=== PATIENT | male | born 1990 | race Caucasian/White ===

== ENCOUNTER 2021-07-29 13:31 | Emergency (ER) | payer BC, SELFPAY ==
--- NOTE | ~2021-07-29 | CT_ITS ---
EXAMINATION: CT soft tissue neck w con DATE: 07/29/2021 17:09 INDICATION: Sore throat, sensation of crepitus. TECHNIQUE: Computed tomography (CT) of the neck was performed with 75 mL Omnipaque-300 intravenous co ntrast. Automated exposure control and iterative reconstruction technique were employed. The dose-byron gth product was 607.74 mGy-cm. COMPARISON: None FINDINGS: The thyroid gland is unremarkable. The submandibular and parotid glands are symmetric. There is n o cervical lymphadenopathy. There are no masses identified. The superior mediastinum is unremarka ble. The airway is unremarkable. Parapharyngeal and pre-glottic fat planes are preserved. Candida l arch, great vessels and neck vessels. The orbits are unremarkable. Mild mucosal thickening in th e ethmoid air cells, retention cyst or polyp in the left medullary sinus, aerated spaces are otherwis e clear. Clear lungs. Normal regional bones. IMPRESSION: 1. Normal CT soft tissue neck findings. Reviewed, dictated and finalized at location K.
[2021-07-29 13:37] VITALS: BP 137/79; PULSE 82; RESP 18; TEMP 36.5; O2SAT 100
--- NOTE | 2021-07-29 15:55 | ED.GENADULT ---
HPI - General Adult General Chief complaint: Unspecified Stated complaint: ST Time Seen by Provider: 07/29/21 14:55 Source: patient History of Present Illness HPI narrative: Reports sore throat for the past couple days today he felt like something was cracking in his chest. He also felt like something popped in his throat and he felt liquid come out that was salty. Ports his symptoms initially were very mild and he was not too concerned however given today's events is concerned about something more serious going on so he came to the ER for evaluation. Reports pain with swallowing his pain is achy, constant and worse with swallowing, no radiation. Denies any fevers. Does report a chronic cough this time ER is not appreciated any new or worsening cough. Denies any nausea vomiting or diarrhea Related Data Allergies Allergy/AdvReac Type Severity Reaction Status Date / Time amoxicillin Allergy Unknown Nausea and Verified 07/29/21 13:40 Vomiting Review of Systems Review of Systems: CONSTITUTIONAL: Denies fever, chills, or sweats. EYES: Denies visual changes, redness, or discharge. ENT: Denies rhinorrhea, or otalgia. CARDIOVASCULAR: Denies chest pain, palpitations, or edema. RESPIRATORY: Denies cough or dyspnea. GASTROINTESTINAL: Denies abdominal pain, nausea, vomiting, or diarrhea. GENITOURINARY: Denies dysuria or hematuria. SKIN: Denies rash or itching. MUSCULOSKELETAL: Denies back pain, joint pain, or myalgia. NEUROLOGIC: Denies headache, numbness, dizziness, or weakness. PSYCHIATRIC: Denies anxiety or depression. All systems reviewed & are unremarkable except as noted in HPI and below Exam Narrative: GENERAL: Well-appearing, well-nourished, and in no acute distress. HEAD: Normocephalic, atraumatic. EYES: PERRLA and EOMI. ENT: Nares clear, no rhinorrhea or epistaxis. Mucous membranes moist. Erythema in the posterior pharynx no exudates no uvula deviation NECK: Supple. No masses. No JVD CHEST: Clear to auscultation. No respiratory distress. No wheezes rales or rhonchi HEART: Regular rate and rhythm. No murmur heard. Normal peripheral pulses. EXTREMITIES: Normal range of motion. No edema. SKIN: Warm, dry, no rash. NEURO: No focal deficits. Alert and oriented x3. PSYCH: Normal mood and affect. Course Reevaluation(s) Reevaluation #1: Patient resting comfortable results and plan reviewed with patient. Patient is comfortable outpatient plan. Date: 07/29/21 Time: 18:01 Vital Signs Vital signs: Vital Signs Temperature 36.5 C 07/29/21 13:37 Pulse Rate 82 07/29/21 13:37 Respiratory Rate 18 07/29/21 13:37 Blood Pressure 137/79 07/29/21 13:37 Pulse Oximetry 100 07/29/21 13:37 Oxygen Delivery Room Air 07/29/21 13:37 Temperature 36.5 C 07/29/21 13:37 Pulse Rate 82 07/29/21 13:37 Respiratory Rate 18 07/29/21 13:37 Blood Pressure 137/79 07/29/21 13:37 Pulse Oximetry 100 07/29/21 13:37 Oxygen Delivery Room Air 07/29/21 13:37 Medical Decision Making MDM Narrative Medical decision making narrative: H&P as above, vss, pt looks clinically well, exam with erythema in the posterior pharynx, labs unremarkable, img without acute process, additional labs/img considered, symptomatic relief available as needed, on reevaluation pt continues to looks clinically well. Suspect viral pharyngitis, dns free air, esophageal injury, perforation, abscess. plan to tx/monitor as op w/ pcm f/u findings/plan discussed with pt, pt agree/comfortable with plan, return precautions given Vital Signs Vital Signs: Vital Signs Temperature 36.5 C 07/29/21 13:37 Pulse Rate 82 07/29/21 13:37 Respiratory Rate 18 07/29/21 13:37 Blood Pressure 137/79 07/29/21 13:37 Pulse Oximetry 100 07/29/21 13:37 Oxygen Delivery Room Air 07/29/21 13:37 Temperature 36.5 C 07/29/21 13:37 Pulse Rate 82 07/29/21 13:37 Respiratory Rate 18 07/29/21 13:37 Blood Pressure 137/79 07/29/21 13:37 Pu
[2021-07-29 16:54] LABS: Alanine Aminotransferase 39 U/L (6-50); Alkaline Phosphatase 87 U/L (38-126); Anion Gap 5 mmol/L (8-16); Aspartate Amino Transferase 37 U/L (17-59); Bilirubin,Total 0.6 mg/dL (0.2-1.3); Blood Urea Nitrogen 10 mg/dL (9-20); Calcium 9.1 mg/dL (8.4-10.2); Carbon Dioxide 31 mmol/L (22-30); Chloride 101 mmol/L (98-107); Estimated CRCL calculation 113 ml/min; Estimated Glomerular Filt Rate > 60; Glucose 109 mg/dL (65-110); Potassium 3.9 mmol/L (3.4-5.0); Sodium 137 mmol/L (137-145)
== END 2021-07-29 18:08 | disposition home or self-care (01) ==
PROVIDERS: Emergency Provider Emergency Medicine; PCP Internal Medicine
DX: J02.9 Acute pharyngitis, unspecified (principal)
CPT/HCPCS: 36415; 70491; 80053; 87081; 87880; 99284; Q9967

== ENCOUNTER 2022-03-04 10:38 | Emergency (ER) | payer BC, SELFPAY ==
--- NOTE | ~2022-03-04 | XR_ITS ---
Clinical Indication: Chest pain PA and lateral views of the chest: Comparison: None Findings: The lungs are clear, aside from probable minimal right basilar scarring or atelectasis. Ca rdiomediastinal silhouette is within normal limits. Bones and soft tissues are unremarkable. Impression: Probable minimal right basilar scarring or atelectasis, otherwise clear lungs. Reviewed, dictated and finalized at location . GAGE LOAN INTERVIEWER Impression: Probable minimal right basilar scarring or atelectasis, otherwise clear lungs.
--- NOTE | ~2022-03-04 | CT_ITS ---
Clinical Indication: Shortness of breath CT Scan of the Chest with Contrast: Technique: Contiguous sections were acquired throughout the chest after intravenous administration of 100 cc of Omnipaque 350. Dose reduction technique was used on this scan by utilizing automated expos ure control and iterative reconstruction technique. The dose-length product (DLP) was 450.31 mGy-cm. Findings: There is no evidence of any significant mediastinal, hilar or axillary lymphadenopathy. There are pul monary emboli within segmental branches in the bilateral lower lobes. Probable additional pulmonary e mboli noted in segmental branches in the right upper lobe.. There is no evidence of aortic dissection or aneurysm. There is no evidence of pleural or pericardial effusion. There is bibasilar groundglass pulmonary opacity, with more focal areas of consolidation at the right lung base. No suspicious pulmonary nodules seen. Images through the upper abdomen reveal no abnormalities. Impression: Segmental level pulmonary emboli in the bilateral lower lobes and right upper lobe. Bibasilar groundglass pulmonary opacity/consolidation could reflect atelectatic change/hypoventilator y change versus possibly developing pulmonary infarcts. Findings reported to Dr. Madrigal at 1:50 PM on 03/04/2022. Reviewed, dictated and finalized at location . ICATIONS WRITER Impression: Segmental level pulmonary emboli in the bilateral lower lobes and right upper l obe. Bibasilar groundglass pulmonary opacity/consolidation could reflect atelectatic change/hypoventilatory change versus possibly developing pulmonary infarcts. Findings reported to Dr. Madrigal at 1:50 PM on 03/04/2022.
[2022-03-04 10:46] VITALS: BP 126/84; PULSE 100; RESP 14; TEMP 36.8; O2SAT 98
--- NOTE | 2022-03-04 11:38 | ECG_ITS ---
Measurements Intervals [place] Rate: 97 P: 39 NE: 163 QRS: 15 QRSD: 106 T: 35 QT: 335 QTc: 426 Interpretive Statements SINUS RHYTHM INCOMPLETE RIGHT BUNDLE BRANCH BLOCK [90+ ms QRS DURATION, TERMINAL R IN V1/V2, 40+ ms S IN I/aVL/V4/V5/V6] NO PREVIOUS ECG AVAILABLE FOR COMPARISON Electronically Signed On 03-04-2022 15:00:50 HEATER HELPER by Bernabe Cook M.D.
[2022-03-04] MEDS: SODIUM CHLORIDE 0.9% IV 1,000 ML 999 ML IV CONT (12:38)
[2022-03-04] MEDS: ACETAMINOPHEN 500 MG TABLET 1000 MG PO (12:39)
[2022-03-04] MEDS: IBUPROFEN 400 MG TABLET 800 MG PO (12:39)
[2022-03-04 12:45] LABS: Basophils Percent Auto 0.2 % (0.2-1.2); Eosinophils Absolute Auto 0.1 K/mm3 (0-0.3); Eosinophils Percent Auto 1.1 % (0-4.4); Hemoglobin 14.4 g/dL (14.0-18.0); Immature Granulocyte Absolute 0.02 K/mm3 (0.00-0.031); Immature Granulocyte Percent A 0.2 % (0-0.5); Lymphocytes Percent Auto 13.3 % (18.3-44.2); Mean Corpuscular HGB Conc 34.3 g/dl (32-36); Mean Corpuscular Hemoglobin 30.3 pg (26-34); Mean Corpuscular Volume 88.2 fl (80-100); Mean Platelet Volume 11.7 fl (7.4-10.4); Monocytes Absolute Auto 0.7 K/mm3 (0.1-0.6); Monocytes Percent Auto 7.8 % (2.6-8.5); Neutrophils Absolute Auto 6.4 K/mm3 (1.3-6.7); Neutrophils Percent Auto 77.4 % (45.5-73.1); Platelet Count Result 278 k/mm3 (150-375); Red Blood Count 4.76 M/mm3 (4.6-6.20); Red Cell Distribution Width 12.3 % (11.5-14.5); White Blood Count 8.3 K/mm3 (4.5-10.0)
[2022-03-04 12:45] LABS: Influenza A QL RT-PCR Negative (Negative); Influenza B QL RT-PCR Negative (Negative); RSV RNA, RT-PCR Negative (Negative); SARS-CoV-2 RNA PCR Positive
--- NOTE | 2022-03-04 12:54 | ED.GENADULT ---
HPI - General Adult General Chief complaint: Upper Respiratory Infection Stated complaint: COVID 02/05 NOW INT SOB Time Seen by Provider: 03/04/22 11:32 History of Present Illness HPI narrative: a 31-year-old male presenting ED with a chief complaint of chest pain and shortness of breath. Patient said that starting Tuesday he started having a sharp pain in the right upper quadrant and in his right shoulder, has 8 out 10 intensity and constant. He has never experienced pain like this before. It is worse with deep breaths. He took some muscle relaxers with some relief. He has also had shortness of breath, hemoptysis. He denies history of blood clots, lower extremity edema, trauma/surgery/malignancy. No history of spontaneous pneumothorax. Patient was diagnosed with COVID in early February. His symptoms have resolved since then. Related Data Allergies Allergy/AdvReac Type Severity Reaction Status Date / Time amoxicillin Allergy Unknown Nausea and Verified 03/04/22 11:22 Vomiting Review of Systems Review of Systems: CONSTITUTIONAL: Denies night sweats. EYES: No eye pain ENT: Denies rhinorrhea CARDIOVASCULAR: Denies palpitations RESPIRATORY: Denies hemoptysis GASTROINTESTINAL: Denies hematemesis GENITOURINARY: Denies hematuria. SKIN: Denies rash MUSCULOSKELETAL: Denies myalgia. NEUROLOGIC: Denies weakness. PSYCHIATRIC: Denies delusions PMFSH Past Medical History Medical History Healthy male adult Social History Social History (Updated 03/04/22 @ 12:58 by Andrew Madrigal MD) Social History: Patient admits occasional alcohol use, denies tobacco or drug use Exam Narrative: APPEARANCE: patient appears uncomfortable Head: atraumatic. EYES: EOMI, NOSE: Atraumatic NECK: Trachea midline RESPIRATORY: 4-5 word dyspnea, clear lung sounds bilaterally CARDIOVASCULAR: RRR, no peripheral edema ABDOMINAL: Non-distended MUSCULOSKELETAl: No obvious deformities NEURO: Alert. Moving 4/4 extremities SKIN:: Warm, dry. Normal color PSYCHIATRIC: Normal affect Course Vital Signs Vital signs: Vital Signs Temperature 98.3 F 03/04/22 10:46 Pulse Rate 100 03/04/22 10:46 Respiratory Rate 14 03/04/22 10:46 Blood Pressure 126/84 03/04/22 10:46 Pulse Oximetry 98 03/04/22 10:46 Oxygen Delivery Room Air 03/04/22 10:46 Temperature 98.3 F 03/04/22 10:46 Pulse Rate 100 03/04/22 10:46 Respiratory Rate 14 03/04/22 10:46 Blood Pressure 126/84 03/04/22 10:46 Pulse Oximetry 98 03/04/22 10:46 Oxygen Delivery Room Air 03/04/22 11:32 Medical Decision Making MDM Narrative Medical decision making narrative: this is a 31-year-old male presenting with shortness of breath, pleuritic chest chest pain, hemoptysis. Differential includes bronchitis, pulmonary embolism, spontaneous pneumothorax, viral syndrome. Lab work, CT PE has been ordered. Chest x-ray EKG obtained. Patient's pain will be treated Motrin Tylenol. He will be given IV fluids. COVID was positive. Patient tested positive in early February CT PE showed: Segmental level pulmonary emboli in the bilateral lower lobes and right upper lobe. Bibasilar groundglass pulmonary opacity/consolidation could reflect atelectatic change/hypoventilatory change versus possibly developing pulmonary infarcts. patient is hemodynamically stable, saturating well on room air and has no elevation in biomarkers. No evidence of right heart strain. Pulmonary Embolism Severity Index (PESI) from [employer] on 03/04/2022 All calculations should be rechecked by clinician prior to use RESULT SUMMARY: 41 points Class I, Very Low Risk: 0-1.6% 30-day mortality in this group. INPUTS: Age ?> 31 years Sex ?> 10 = Male History of cancer ?> 0 = No History of heart failure ?> 0 = No History of chronic lung disease ?> 0 = No Heart rate >=10 ?> 0 = No Systolic BP ?> 0 = No Respiratory
[2022-03-04 12:56] LABS: Alanine Aminotransferase 77 U/L (6-50); Albumin Level 4.6 g/dL (3.5-5.1); Alkaline Phosphatase 96 U/L (38-126); Anion Gap 8 mmol/L (8-16); Aspartate Amino Transferase 43 U/L (17-59); Bilirubin,Total 0.9 mg/dL (0.2-1.3); Blood Urea Nitrogen 8 mg/dL (9-20); Carbon Dioxide 28 mmol/L (22-30); Chloride 105 mmol/L (98-107); Estimated CRCL calculation 119 ml/min; Estimated Glomerular Filt Rate > 60; Glucose 111 mg/dL (65-110); Lipase 31 U/L (23-300); Potassium 4.2 mmol/L (3.4-5.0); Sodium 141 mmol/L (137-145)
[2022-03-04 12:58] LABS: INR 1.1; Prothrombin Time 13.7 Seconds (11.1-14.7)
[2022-03-04] MEDS: oxyCODONE HCL (*CRX) 5 MG TAB IR PO (12:58)
[2022-03-04 12:59] LABS: Partial Thromboplastin Time 30.6 SECONDS (22.3-36.8)
[2022-03-04] MEDS: methocarbamoL 750 MG TABLET 1500 MG PO (12:59)
[2022-03-04 13:07] LABS: NT Pro B Type Natriuretic Pept 27 pg/mL (5-100); Troponin I < 0.012 ng/mL (0.000-0.034)
[2022-03-04 14:11] VITALS: BP 141/79; PULSE 85; RESP 18; O2SAT 98
[2022-03-04] MEDS: APIXABAN 5 MG TABLET 10 MG PO (14:43)
== END 2022-03-04 14:51 | disposition home or self-care (01) ==
PROVIDERS: Emergency Provider Emergency Medicine; PCP Internal Medicine
DX: U07.1 COVID-19 (principal); I26.99 Other pulmonary embolism without acute cor pulmonale; I45.10 Unspecified right bundle-branch block
CPT/HCPCS: 36415; 71046; 71275; 80053; 83690; 83735; 83880; 84484; 85025; 85610; 85730; 87637; 93005; 96360; 99284; A9270; J7030; Q9967

== ENCOUNTER 2022-03-05 11:30 | Inpatient (IN) | payer BC, SELFPAY ==
[2022-03-05] VITALS (13 sets, daily range): BP systolic 121–137; BP diastolic 74–83; PULSE 92–119; RESP 14–36; TEMP 36.6–36.9; O2SAT 97–100; BMI 26.9
--- NOTE | ~2022-03-05 | US_ITS ---
EXAMINATION: US venous doppler [facility] DATE: 03/06/2022 08:39 INDICATION: Chest pain. TECHNIQUE: Grayscale ultrasound images without and with compression and Doppler ultrasound images of the bilateral lower extremity veins were obtained. COMPARISON: None. FINDINGS: The visualized portions of right common femoral vein, profunda (deep) femoral vein, femoral vein, pop liteal vein, peroneal veins, posterior tibial veins, and greater saphenous vein outflow are patent. The visualized portions of left common femoral vein, profunda femoral vein, femoral vein, popliteal v ein, peroneal veins, posterior tibial veins, and greater saphenous vein outflow are patent. IMPRESSION: 1. No deep venous thrombosis. Reviewed, dictated and finalized at location A. OR BLENDER
--- NOTE | ~2022-03-05 | CT_ITS ---
EXAMINATION: CTA chest PE protocol DATE: 03/05/2022 13:01 INDICATION: Left-sided chest pain, known PE TECHNIQUE: Computed tomography angiography (CTA) of the chest was performed with 100 mL Omnipaque-350 intravenous contrast timed to evaluate the pulmonary arteries. Coronal maximum intensity projection 3D-reconstructions were created by the technologist. The dose-length product (DLP) was 466.40 mGy-cm. Automated exposure control and iterative reconstruction technique were employed. COMPARISON: 03/04/2022 FINDINGS: The pulmonary arteries are well-opacified. Again noted are segmental pulmonary emboli in th e lower lobes and right upper lobe. There are small pleural effusions. There are worsening dependent airspace opacities in the lower lobes. No pneumothorax is identified. No pathologically enlarged thor acic lymph nodes are identified. The heart size is normal. There is bilateral gynecomastia. IMPRESSION: 1. Segmental pulmonary emboli in the lower lobes and right upper lobe. 2. Worsening airspace opacities in the lower lobes which may be atelectasis/pneumonia versus pulmonar y infarct. 3. Small pleural effusions. Reviewed, dictated and finalized at location B. ICAL INSTRUMENT MAKER IMPRESSION: 1. Segmental pulmonary emboli in the lower lobes and right upper lobe. 2. Worsening airspace opacities in the lower lobes which may be atelectasis/pne umonia versus pulmonary infarct. 3. Small pleural effusions.
--- NOTE | 2022-03-05 11:51 | ECG_ITS ---
Measurements Intervals [place] Rate: 105 P: 34 [place]: 173 QRS: 18 QRSD: 106 T: 45 QT: 312 QTc: 413 Interpretive Statements SINUS TACHYCARDIA INCOMPLETE RIGHT BUNDLE BRANCH BLOCK [90+ ms QRS DURATION, TERMINAL R IN V1/V2, 40+ ms S IN I/aVL/V4/V5/V6] ABNORMAL RHYTHM ECG COMPARED TO ECG 03/04/2022 12:00:59 NO DIFFERENCE Electronically Signed On 03-05-2022 14:59:55 ART GLASS SETTER by Reyes Mclain M.D.
[2022-03-05] MEDS: SODIUM CHLORIDE 0.9% IV 1,000 ML 999 ML IV CONT (12:24)
[2022-03-05] MEDS: MORPHINE SULFATE (*CRX) 4 MG/ML INJ IV PUSH ×2 (12:25→18:47)
[2022-03-05 12:50] LABS: Basophils Percent Auto 0.2 % (0.2-1.2); Eosinophils Absolute Auto 0.1 K/mm3 (0-0.3); Eosinophils Percent Auto 0.6 % (0-4.4); Hemoglobin 13.4 g/dL (14.0-18.0); Immature Granulocyte Absolute 0.03 K/mm3 (0.00-0.031); Immature Granulocyte Percent A 0.3 % (0-0.5); Lymphocytes Percent Auto 6.8 % (18.3-44.2); Mean Corpuscular HGB Conc 33.5 g/dl (32-36); Mean Corpuscular Hemoglobin 30.4 pg (26-34); Mean Corpuscular Volume 90.7 fl (80-100); Mean Platelet Volume 11.4 fl (7.4-10.4); Monocytes Absolute Auto 0.8 K/mm3 (0.1-0.6); Monocytes Percent Auto 7.3 % (2.6-8.5); Neutrophils Absolute Auto 8.7 K/mm3 (1.3-6.7); Neutrophils Percent Auto 84.8 % (45.5-73.1); Platelet Count Result 252 k/mm3 (150-375); Red Blood Count 4.41 M/mm3 (4.6-6.20); Red Cell Distribution Width 12.4 % (11.5-14.5); White Blood Count 10.3 K/mm3 (4.5-10.0)
[2022-03-05 13:00] LABS: INR 1.2
[2022-03-05 13:01] LABS: Partial Thromboplastin Time 34.4 SECONDS (22.3-36.8)
[2022-03-05 13:09] LABS: Alanine Aminotransferase 72 U/L (6-50); Albumin Level 4.2 g/dL (3.5-5.1); Alkaline Phosphatase 86 U/L (38-126); Anion Gap 6 mmol/L (8-16); Aspartate Amino Transferase 33 U/L (17-59); Blood Urea Nitrogen 7 mg/dL (9-20); Calcium 8.7 mg/dL (8.4-10.2); Carbon Dioxide 28 mmol/L (22-30); Chloride 105 mmol/L (98-107); Estimated CRCL calculation 132 ml/min; Estimated Glomerular Filt Rate > 60; Glucose 134 mg/dL (65-110); Sodium 139 mmol/L (137-145)
--- NOTE | 2022-03-05 14:06 | ED.CHESTPAIN ---
HPI - Chest Pain General Chief Complaint: Chest Pain Stated Complaint: PE's (diagnosed yesterday), increased pain Time Seen by Provider: 03/05/22 12:03 History of Present Illness HPI narrative: Patient is a 31-year-old male who presents to the ER with reports of right-sided back pain and shortness of breath. Diagnosed with pulmonary embolism yesterday. Started on Eliquis and has had 2 doses. Pain is increasing and he has not taken his [place]. He has occasional cough. No fevers or chills. Has difficulty getting a deep breath due to his discomfort. Previously patient been having some hemoptysis prior to being diagnosed. Related Data Home Medications Medication Instructions Recorded Confirmed acetaminophen 500 mg tablet 1,000 mg PO TID PRN Pain 03/05/22 03/05/22 apixaban 5 mg (74 tabs) tablets in 10 mg PO BID 03/05/22 03/05/22 a dose pack (Eliquis DVT-PE Treat 30D Start) Allergies Allergy/AdvReac Type Severity Reaction Status Date / Time amoxicillin Allergy Unknown Nausea and Verified 03/04/22 11:22 Vomiting Review of Systems Review of Systems: All systems reviewed & are unremarkable except as noted in HPI and below Constitutional: Constitutional: Denies chills, Denies fatigue and Denies fever(s) ENT: Denies nasal congestion and Denies sore throat Cardiovascular: Cardiovascular: Reports chest pain, Denies rapid heart rate and Reports radiating jaw, neck or arm pain Respiratory: Respiratory: Reports cough and Reports dyspnea Comments: Difficulty with deep breath due to pain Gastrointestinal: Gastrointestinal: Denies abdominal pain, Denies nausea and Denies vomiting [facility] Past Medical History Medical History (Updated 03/05/22 @ 21:59 by Db Majano MD) Pulmonary embolism Social History Social History (Updated 03/04/22 @ 12:58 by Andrew Madrigal MD) Social History: Patient admits occasional alcohol use, denies tobacco or drug use Smoking status: Never smoker Alcohol intake: current Drinks per week: 1 Substance use: never Lack of Transportation: No Lack of Food: Never True Current Housing: I Have Housing Concerned About Future Housing: No Difficulty Paying Gas/Electric Bills: No Difficulty Paying for Meds: No Currently Unemployed: No Education: Associate Degree Difficulty w/ Childcare or Family Care: No Spiritual care concerns: No Exam Narrative: GENERAL: Well-appearing, well-nourished, and in no acute distress. HEAD: Normocephalic, atraumatic. NECK: Supple. CHEST: Clear to auscultation. Increased respiratory rate with shallow breaths. HEART: Regular rate and rhythm. Normal peripheral pulses. ABDOMEN: Soft, nontender, nondistended. EXTREMITIES: Normal range of motion. No edema. SKIN: Warm, dry, no rash. NEURO: Alert and oriented x3. PSYCH: Normal mood and affect. Course Course Emergency Course: Admit to hospitalist service with IV antibiotics. Concerning that he is developing pneumonia given increasing white count and progressive pain and persistent dyspnea. We will also start incentive spirometry. Vital Signs Vital signs: Vital Signs Temperature 98 F 03/05/22 12:03 Pulse Rate 119 H 03/05/22 12:03 Respiratory Rate 16 03/05/22 12:03 Blood Pressure 135/82 03/05/22 12:03 Pulse Oximetry 100 03/05/22 12:03 Temperature 98.4 F 03/05/22 21:41 Pulse Rate 100 03/05/22 21:41 Respiratory Rate 14 03/05/22 21:41 Blood Pressure 132/74 03/05/22 21:41 Pulse Oximetry 98 03/05/22 21:41 Oxygen Delivery Room Air 03/05/22 17:50 MDM - Chest Pain Lab Data 03/05/22 12:44 03/05/22 12:44 Labs: Lab Results 03/05/22 03/05/22 03/05/22 Range/Units 12:44 12:44 12:44 WBC 10.3 H (4.5-10.0) K/mm3 RBC 4.41 L (4.6-6.20) M/mm3 Hgb 13.4 L (14.0-18.0) g/dL Hct 40.0 L (42.0-52.0) % MCV 90.7 (80-100) fl MCH 30.4 (26-34) pg MCHC 33.5 (32-36) g/dl RDW 12.
[2022-03-05] MEDS: APIXABAN 5 MG TABLET 10 MG PO ×2 (15:18→18:45)
--- NOTE | 2022-03-05 19:04 | PM.IMHP ---
H&P: HPI History of Present Illness Date/Time: 03/05/22 19:04 Chief Complaint: Chest pain Narrative: This is a 31-year-old male patient who was diagnosed with a PE yesterday. The patient was sent home on Eliquis and pain medication. The patient stated that he has severe pain when every takes a deep breath. The patient was complaining of left rib pain today. The patient has had 2 doses of Eliquis in the last 24 hours. The patient did not take his [place] at home. The patient stated was more difficult to breathe. The patient is currently on room air. His white count is noted to be 10.3. H&H is 13.4 and 40. The patient was recently diagnosed with COVID and was found to be positive on 03/04/2022. The patient stated that he tested positive earlier in February. The patient was given morphine, normal saline, ceftriaxone, azithromycin, Eliquis, and Tylenol in the emergency room. His CT scan from today shows segmental pulmonary emboli in the lower lobes and right upper lobe worsening airspace opacities in the lower lungs which could be atelectasis/pneumonia versus pulmonary infarct. Small pleural effusions. The patient is being admitted to observation status on the date of service of 03/05/2022. Review of Systems Review of Systems: See HPI All systems reviewed & are unremarkable except as noted in HPI and below Constitutional: Constitutional: Reports as per HPI and Reports no additional constitutional complaints Eyes: Eyes: Reports as per HPI and Reports no additional eye complaints ENT: Reports system reviewed and no additional complaints, except as documented and Reports Normal hearing present Cardiovascular: Cardiovascular: Reports no additional cardiovascular complaints Respiratory: Respiratory: Reports no additional respiratory complaints and Reports no additional respiratory complaints Gastrointestinal: Gastrointestinal: Reports as per HPI and Reports no additional gastrointestinal complaints Musculoskeletal: Musculoskeletal: Reports no additional musculoskeletal complaints Integumentary/Breasts: Skin/Breast: Reports system reviewed and no additional complaints, except as docu and Reports as per HPI Neurologic: Reports system reviewed and no additional complaints, except as documented, Reports as per HPI and Reports Normal hearing present Psychiatric: Psychiatric: Reports no additional psychiatric complaints and Reports as per HPI Endocrine: Endocrine: Reports no additional endocrine complaints Hematologic/Lymphatic: Hematologic/Lymphatic: Reports no additional hematologic/lymphatic complaints Allergic/Immunologic: Allergic/Immunologic: Reports no additional allergic/immunologic complaints [facility] Past Medical History Medical History (Updated 12/30/22 @ 21:59 by Db Majano MD) Pulmonary embolism Surgical History Surgical History (Updated 03/05/22 @ 22:22 by Dena Alfonso NP) [place] teeth extracted Family History Family History (Updated 03/05/22 @ 22:22 by Dena Alfonso NP) Father Diabetes mellitus Social History Social History (Updated 03/05/22 @ 22:23 by Dena Alfonso NP) Social History: Patient admits occasional alcohol use, denies tobacco or drug use. He works for [employer]. He has a significant other who is his fiancee. He does not have a durable power transactional attorney for healthcare. Code status full code Smoking status: Never smoker Alcohol intake: current Drinks per week: 1 Substance use: never Lack of Transportation: No Lack of Food: Never True Current Housing: I Have Housing Concerned About Future Housing: No Difficulty Paying Gas/Electric Bills: No Difficulty Paying for Meds: No Currently Unemployed: No Education: Associate Degree Difficulty w/ Childcare or Family Care: No Spiritual care concerns: No Meds Home Medications and Allergies Home Medications Medication Instructions Recorded Confirmed Type hydrocodone 5 mg-a
[2022-03-05] MEDS: HYDROcodone/acetaminophen (*CRX) 5-325 MG TABLET 1 TAB PO (19:56)
[2022-03-06] VITALS (17 sets, daily range): BP systolic 112–128; BP diastolic 71–84; PULSE 76–110; RESP 14–20; TEMP 36.6–36.8; O2SAT 96–97
--- NOTE | 2022-03-06 | ECHO_ITS ---
Patient Info Name: Oj Cabrales Age: 31 years : 1990 Gender: Male Ht: 75 in Wt: 227 lbs BSA: 2.35 m2 HR: 98 bpm BP: 116 / 71 mmHg Heart Rhythm: Sinus Rhythm Technical Quality: Fair Exam Date: 03/06/2022 8:49 AM Exam Location: [facility] Pulmonary Exam Room: [facility] Patient Status: Inpatient Admit Date: 03/05/2022 Staff Ordering Physician: Dena Alfonso NP Tool Supervisor: Shoshana Ayers RDCS Attending Provider: Carol Morrison MD Referring Physician: Naty MORAES; Exam Type: CA echo doppler color flow Study Info Indications - PULMONARY EMBOLISM Complete two-dimensional, color flow and Doppler transthoracic echocardiogram is performed with contrast to opacify the left ventricle and to improve the deliniation of the left ventricle endocardial borders. Contrast/Agitated Saline Contrast/Ag. Saline: Definity Amount: 2.00 ml Administered By: Shoshana Ayers [facility] Existing IV Access: Yes Summary 1. Unremarkable 2D/Doppler echocardiogram. 2. Definity contrast used to improve visualization. 3. No evidence of right ventricular pressure overload. Left Ventricle Left ventricular chamber dimension is normal. Left ventricular systolic function is normal, estimated at 60-65%. The left ventricular diastolic function is normal. Right Ventricle Right ventricular chamber dimension is normal. Right ventricular systolic function is normal. Left Atria Left atrial chamber dimension is normal. Right Atria Right atrial chamber dimension is normal. Aortic Valve The aortic valve is normal. Pulmonic Valve The pulmonic valve is normal. Mitral Valve The mitral valve has normal leaflets. Tricuspid Valve The tricuspid valve leaflets are normal. Pericardium/Pleural The pericardium appears normal. Aorta The aortic root size at the sinus of Valsalva is normal. Left Ventricular Outflow Tract Name Value Normal LVOT 2D LVOT Diameter 2.1 cm LVOT Doppler LVOT Peak Gradient 6 mmHg LVOT Mean Gradient 3 mmHg LVOT VTI 18 cm LVOT VTI/AV VTI Ratio 1.0 LVOT Stroke Volume 62 ml LVOT CO 16.3 l/min LVOT CI 6.9 l/min/m2 Pulmonic Valve Name Value Normal PV Doppler PV Peak Gradient 3 mmHg Mitral Valve Name Value Normal MV Doppler MV Decel [place] 394 cm/s2 MV PHT
[2022-03-06] MEDS: ACETAMINOPHEN 325 MG TABLET 650 MG PO (00:46)
[2022-03-06] MEDS: PROMETHAZINE HCL 25 MG/ML AMPUL 12.5 MG IV PUSH (00:46)
[2022-03-06] MEDS: CYCLOBENZAPRINE HCL 5 MG TABLET PO (01:13)
[2022-03-06] MEDS: ALBUTEROL SULFATE NEB 2.5 MG/3 ML INH INHALATION ×4 (01:50→21:20)
[2022-03-06] MEDS: IPRATROPIUM BR 0.02% INH SOLN 0.5 MG/2.5 ML VIAL INHALATION ×4 (01:51→21:20)
[2022-03-06] MEDS: PERFLUTREN LIPID MICROSPHERES 1.5 ML VIAL DILUTED TO 10 ML TOTAL VOLUME IV PUSH (09:15)
[2022-03-06] MEDS: APIXABAN 5 MG TABLET 10 MG PO ×2 (09:36→21:38)
[2022-03-06] MEDS: oxyCODONE/ACETAMINOPHEN (*CRX) 5-325 MG TABLET 1 TABLET PO ×2 (09:36→17:43)
[2022-03-06] MEDS: CYCLOBENZAPRINE HCL 10 MG TABLET PO ×2 (09:47→17:43)
[2022-03-06 12:46] LABS: Basophils Percent Auto 0.4 % (0.2-1.2); Eosinophils Percent Auto 0.5 % (0-4.4); Hematocrit 38.9 % (42.0-52.0); Immature Granulocyte Absolute 0.01 K/mm3 (0.00-0.031); Immature Granulocyte Percent A 0.1 % (0-0.5); Lymphocytes Absolute Auto 0.93 K/mm3 (0.9-3.2); Lymphocytes Percent Auto 12.6 % (18.3-44.2); Mean Corpuscular HGB Conc 33.4 g/dl (32-36); Mean Corpuscular Hemoglobin 30.2 pg (26-34); Mean Corpuscular Volume 90.3 fl (80-100); Mean Platelet Volume 11.1 fl (7.4-10.4); Monocytes Absolute Auto 0.8 K/mm3 (0.1-0.6); Monocytes Percent Auto 11.2 % (2.6-8.5); Neutrophils Absolute Auto 5.6 K/mm3 (1.3-6.7); Neutrophils Percent Auto 75.2 % (45.5-73.1); Platelet Count Result 258 k/mm3 (150-375); Red Blood Count 4.31 M/mm3 (4.6-6.20); Red Cell Distribution Width 12.5 % (11.5-14.5); White Blood Count 7.4 K/mm3 (4.5-10.0)
[2022-03-06 13:01] LABS: Alanine Aminotransferase 58 U/L (6-50); Albumin Level 4.3 g/dL (3.5-5.1); Alkaline Phosphatase 78 U/L (38-126); Anion Gap 7 mmol/L (8-16); Aspartate Amino Transferase 26 U/L (17-59); Bilirubin,Total 0.9 mg/dL (0.2-1.3); Blood Urea Nitrogen 9 mg/dL (9-20); Calcium 8.8 mg/dL (8.4-10.2); Carbon Dioxide 29 mmol/L (22-30); Chloride 102 mmol/L (98-107); Estimated CRCL calculation 147 ml/min; Estimated Glomerular Filt Rate > 60; Glucose 142 mg/dL (65-110); Lactate Dehydrogenase 148 U/L (120-246); Magnesium 2.2 mg/dL (1.6-2.3); Potassium 3.6 mmol/L (3.4-5.0); Sodium 138 mmol/L (137-145)
--- NOTE | 2022-03-06 15:07 | PM.IMPN ---
Progress Note: A&P Assessment and Plan (1) Pneumonia: Code(s): J18.9 - Pneumonia, unspecified organism Status: Acute Assessment and Plan: -Patient's CT shows worsening airspace opacities in the lower lungs. The patient was complaining of some discomfort to his lower lung. -The patient tested positive for COVID earlier this month and again yesterday he tested positive. -The patient was empirically started on Rocephin and azithromycin. Which will be continued mild WBC up trend -DuoNeb -tailor antibiotics to culture sensitivities Continue to encourage incentive spirometer (2) Pulmonary embolism: Code(s): I26.99 - Other pulmonary embolism without acute cor pulmonale Status: Acute Assessment and Plan: -continue with Eliquis Likely from COVID Continue Eliquis Too early say Eliquis failure Echo reviewed EF 60-65% no right heart strain Venous duplex lower extremities negative for DVT Subjective Date/time seen: 03/06/22 15:07 Interval history: This is a 31-year-old male patient who was diagnosed with a PE yesterday.? The patient was sent home on Eliquis and pain medication.? The patient stated that he has severe pain when every takes a deep breath.? The patient was complaining of left rib pain today.? The patient has had 2 doses of Eliquis in the last 24 hours.? The patient did not take his [place] at home.? The patient stated was more difficult to breathe.? The patient is currently on room air.? His white count is noted to be 10.3.? H&H is 13.4 and 40.? The patient was recently diagnosed with COVID and was found to be positive on 03/04/2022.? The patient stated that he tested positive earlier in February.? The patient was given morphine, normal saline, ceftriaxone, azithromycin, Eliquis, and Tylenol in the emergency room.? His CT scan from today shows segmental pulmonary emboli in the lower lobes and right upper lobe worsening airspace opacities in the lower lungs which could be atelectasis/pneumonia versus pulmonary infarct.? Small pleural effusions.? The patient is being admitted to observation status on the date of service of 03/05/2022. 03/06/2022: Still has significant pain which is mostly pleuritic on the right lower side of chest. No fever chills no cough. CT scans reviewed. No personal or family history of clotting Review of Systems Review of Systems: All systems reviewed & are unremarkable except as noted in HPI and below Exam Narrative: GENERAL: Well-appearing, well-nourished, and in no acute distress. HEAD: Normocephalic, atraumatic. NECK: Supple. CHEST: Clear to auscultation.? Not in acute distress HEART: Regular rate and rhythm.? Normal peripheral pulses. ABDOMEN: Soft, nontender, nondistended. EXTREMITIES: Normal range of motion.? No edema. SKIN: Warm, dry, no rash. NEURO:? Alert and oriented x3. PSYCH: Normal mood and affect. Objective Data Vital Signs Vital Signs: Vital Signs - 24 hr 03/05/22 15:38 03/05/22 16:33 03/05/22 17:50 Temperature 98.2 F Pulse Rate 95 95 Respiratory Rate 16 18 Blood Pressure 121/83 137/82 Pulse Oximetry 97 99 Oxygen Delivery Room Air 03/05/22 21:41 03/05/22 20:00 03/05/22 20:00 Temperature 98.4 F Pulse Rate 100 111 H Respiratory Rate 14 Blood Pressure 132/74 Pulse Oximetry 98 Oxygen Delivery Room Air 03/06/22 01:51 03/06/22 01:52 03/06/22 00:00 Temperature Pulse Rate 90 94 Respiratory Rate 20 Blood Pressure Pulse Oximetry 96 Oxygen Delivery Room Air 03/06/22 02:05 03/06/22 04:00 03/06/22 05:49 Temperature 98.3 F Pulse Rate 94 76 80 Respiratory Rate 20 14 Blood Pressure 116/71 Pulse Oximetry 96 Oxygen Delivery 03/06/22 08:00 03/06/22 10:00 03/06/22 10:15 Temperature Pulse Rate 93 110 H 110 H Respiratory Rate 20 20 Blood Pressure Pulse Oximetry Oxygen Delivery 03/06/22 13:40 03/06/22 13:49 03/06/22 14:00 Temperature 98 F Pulse Rate 99 105 H 110 H Re
[2022-03-07] VITALS (17 sets, daily range): BP systolic 109–119; BP diastolic 68–74; PULSE 78–112; RESP 2–22; TEMP 36.7–36.8; O2SAT 96–100
[2022-03-07 07:43] LABS: Basophils Percent Auto 0.4 % (0.2-1.2); Eosinophils Absolute Auto 0.2 K/mm3 (0-0.3); Eosinophils Percent Auto 2.1 % (0-4.4); Hematocrit 37.6 % (42.0-52.0); Hemoglobin 12.3 g/dL (14.0-18.0); Immature Granulocyte Absolute 0.02 K/mm3 (0.00-0.031); Immature Granulocyte Percent A 0.3 % (0-0.5); Lymphocytes Absolute Auto 1.44 K/mm3 (0.9-3.2); Lymphocytes Percent Auto 20.4 % (18.3-44.2); Mean Corpuscular HGB Conc 32.7 g/dl (32-36); Mean Corpuscular Hemoglobin 29.9 pg (26-34); Mean Corpuscular Volume 91.3 fl (80-100); Mean Platelet Volume 11.1 fl (7.4-10.4); Monocytes Absolute Auto 0.7 K/mm3 (0.1-0.6); Monocytes Percent Auto 9.5 % (2.6-8.5); Neutrophils Absolute Auto 4.8 K/mm3 (1.3-6.7); Neutrophils Percent Auto 67.3 % (45.5-73.1); Platelet Count Result 273 k/mm3 (150-375); Red Blood Count 4.12 M/mm3 (4.6-6.20); Red Cell Distribution Width 12.6 % (11.5-14.5); White Blood Count 7.1 K/mm3 (4.5-10.0)
[2022-03-07 07:58] LABS: Alanine Aminotransferase 89 U/L (6-50); Albumin Level 4.1 g/dL (3.5-5.1); Alkaline Phosphatase 81 U/L (38-126); Anion Gap 5 mmol/L (8-16); Aspartate Amino Transferase 50 U/L (17-59); Bilirubin,Total 0.8 mg/dL (0.2-1.3); Blood Urea Nitrogen 9 mg/dL (9-20); Calcium 8.7 mg/dL (8.4-10.2); Carbon Dioxide 31 mmol/L (22-30); Chloride 102 mmol/L (98-107); Estimated CRCL calculation 119 ml/min; Estimated Glomerular Filt Rate > 60; Glucose 109 mg/dL (65-110); Magnesium 2.1 mg/dL (1.6-2.3); Potassium 4.1 mmol/L (3.4-5.0); Sodium 138 mmol/L (137-145)
[2022-03-07] MEDS: APIXABAN 5 MG TABLET 10 MG PO ×2 (08:15→22:09)
[2022-03-07] MEDS: ALBUTEROL SULFATE NEB 2.5 MG/3 ML INH INHALATION ×3 (08:22→20:59)
[2022-03-07] MEDS: IPRATROPIUM BR 0.02% INH SOLN 0.5 MG/2.5 ML VIAL INHALATION ×3 (08:22→20:59)
--- NOTE | 2022-03-07 14:23 | PM.IMPN ---
Progress Note: A&P Assessment and Plan (1) Pneumonia: Code(s): J18.9 - Pneumonia, unspecified organism Status: Acute Assessment and Plan: -Patient's CT shows worsening airspace opacities in the lower lungs. The patient was complaining of some discomfort to his lower lung. -The patient tested positive for COVID earlier this month and again yesterday he tested positive. -The patient was empirically started on Rocephin and azithromycin. Which will be continued mild WBC up trend -DuoNeb -tailor antibiotics to culture sensitivities Continue to encourage incentive spirometer (2) Pulmonary embolism: Code(s): I26.99 - Other pulmonary embolism without acute cor pulmonale Status: Acute Assessment and Plan: -continue with Eliquis Likely from COVID Continue Eliquis Too early to say Eliquis failure Echo reviewed EF 60-65% no right heart strain Venous duplex lower extremities negative for DVT Subjective Date/time seen: 03/07/22 14:23 Interval history: This is a 31-year-old male patient who was diagnosed with a PE yesterday.? The patient was sent home on Eliquis and pain medication.? The patient stated that he has severe pain when every takes a deep breath.? The patient was complaining of left rib pain today.? The patient has had 2 doses of Eliquis in the last 24 hours.? The patient did not take his [place] at home.? The patient stated was more difficult to breathe.? The patient is currently on room air.? His white count is noted to be 10.3.? H&H is 13.4 and 40.? The patient was recently diagnosed with COVID and was found to be positive on 03/04/2022.? The patient stated that he tested positive earlier in February.? The patient was given morphine, normal saline, ceftriaxone, azithromycin, Eliquis, and Tylenol in the emergency room.? His CT scan from today shows segmental pulmonary emboli in the lower lobes and right upper lobe worsening airspace opacities in the lower lungs which could be atelectasis/pneumonia versus pulmonary infarct.? Small pleural effusions.? The patient is being admitted to observation status on the date of service of 03/05/2022. 03/06/2022: Still has significant pain which is mostly pleuritic on the right lower side of chest. No fever chills no cough. CT scans reviewed. No personal or family history of clotting 03/07/2022: Patient feeling better. Still has pain when he takes deep breath. Using incentive spirometry. Cough. Shortness of breath on exertion. Review of Systems Review of Systems: All systems reviewed & are unremarkable except as noted in HPI and below Exam Narrative: GENERAL: Well-appearing, well-nourished, and in no acute distress. HEAD: Normocephalic, atraumatic. NECK: Supple. CHEST: Clear to auscultation.? Not in acute distress HEART: Regular rate and rhythm.? Normal peripheral pulses. ABDOMEN: Soft, nontender, nondistended. EXTREMITIES: Normal range of motion.? No edema. SKIN: Warm, dry, no rash. NEURO:? Alert and oriented x3. PSYCH: Normal mood and affect. Objective Data Vital Signs Vital Signs: Vital Signs - 24 hr 03/06/22 16:00 03/06/22 21:15 03/06/22 21:20 Temperature 97.8 F Pulse Rate 98 99 96 Respiratory Rate 18 18 Blood Pressure 128/84 Pulse Oximetry 97 Oxygen Delivery 03/06/22 20:00 03/07/22 00:00 03/06/22 20:00 Temperature Pulse Rate 88 96 Respiratory Rate Blood Pressure Pulse Oximetry Oxygen Delivery Room Air 03/07/22 02:45 03/07/22 02:57 03/07/22 05:19 Temperature 98.3 F Pulse Rate 99 89 98 Respiratory Rate 18 18 22 H Blood Pressure 112/68 Pulse Oximetry 97 Oxygen Delivery 03/07/22 04:00 03/07/22 08:22 03/07/22 08:25 Temperature Pulse Rate 87 94 94 Respiratory Rate 18 18 Blood Pressure Pulse Oximetry 96 Oxygen Delivery Room Air 03/07/22 08:36 03/07/22 08:15 03/07/22 08:15 Temperature Pulse Rate 92 81 Respiratory Rate 18 Blood Pressure Pulse Oximetry
[2022-03-07] MEDS: ACETAMINOPHEN 325 MG TABLET 650 MG PO (17:29)
[2022-03-07] MEDS: CYCLOBENZAPRINE HCL 10 MG TABLET PO (17:29)
[2022-03-08] VITALS: PULSE 94
[2022-03-08 04:00] VITALS: PULSE 100
[2022-03-08 05:37] VITALS: BP 116/68; PULSE 104; RESP 16; TEMP 36.2; O2SAT 96
[2022-03-08 09:00] VITALS: PULSE 83; RESP 16
[2022-03-08] MEDS: IPRATROPIUM BR 0.02% INH SOLN 0.5 MG/2.5 ML VIAL INHALATION (09:02)
[2022-03-08] MEDS: ALBUTEROL SULFATE NEB 2.5 MG/3 ML INH INHALATION (09:03)
[2022-03-08 09:13] VITALS: PULSE 89; RESP 16
[2022-03-08] MEDS: APIXABAN 5 MG TABLET 10 MG PO (09:39)
--- NOTE | 2022-03-08 12:07 | PM.DS ---
DS: Admitting Diagnosis Discharge Date 03/08/2022 Admitting Diagnosis chest pain DS: Discharge Diagnosis Discharge Diagnosis (1) Pneumonia: Code(s): J18.9 - Pneumonia, unspecified organism Status: Acute (2) Pulmonary embolism: Code(s): I26.99 - Other pulmonary embolism without acute cor pulmonale Status: Acute DS: Summary Hospital Course Hospital Course: # Pneumonia vs pulmonary infarct: Patient's CT shows worsening airspace opacities in the lower lungs.? The patient was complaining of some discomfort to his lower lung. The patient tested positive for COVID earlier this month and again yesterday he tested positive. The patient was empirically started on Rocephin and azithromycin.? Which will be continued mild WBC up trend DuoNeb swtich antibtoics to oral to finish the course. albuteorl prn incentive spirometry # Recent acute PE: continue with Eliquis Likely from COVID Continue Eliquis Too early to say Eliquis failure Echo reviewed EF 60-65% no right heart strain Venous duplex lower extremities negative for DVT Time Spent with Patient Time attestation: Total time spent providing and/or coordinating discharge services:40 mins Exam Narrative: GENERAL: Well-appearing, well-nourished, and in no acute distress. HEAD: Normocephalic, atraumatic. NECK: Supple. CHEST: Clear to auscultation.? Not in acute distress HEART: Regular rate and rhythm.? Normal peripheral pulses. ABDOMEN: Soft, nontender, nondistended. EXTREMITIES: Normal range of motion.? No edema. SKIN: Warm, dry, no rash. NEURO:? Alert and oriented x3. PSYCH: Normal mood and affect. DS: Data Data Completed and Pending Completed studies during hospitalization: Exam Type: ? ? CA echo doppler color flow Study Info Indications ?? ? - PULMONARY EMBOLISM Complete two-dimensional, color flow and Doppler transthoracic echocardiogram is performed with contrast to opacify the left ventricle and to improve the deliniation of the left ventricle endocardial borders. Account #: ? ? [id number] Contrast/Agitated Saline Contrast/Ag. Saline: ? ? Definity Amount: ? ? 2.00 ml Administered By: ? ? Armen,? Shoshana FERRARO Existing IV Access: ? ? Yes Summary ? 1. Unremarkable 2D/Doppler echocardiogram. ? 2. Definity contrast used to improve visualization. ? 3. No evidence of right ventricular pressure overload. Left Ventricle ? Left ventricular chamber dimension is normal. ? Left ventricular systolic function is normal, estimated at 60-65%. ? The left ventricular diastolic function is normal. Right Ventricle ? Right ventricular chamber dimension is normal. ? Right ventricular systolic function is normal. Left Atria ? Left atrial chamber dimension is normal. Right Atria ? Right atrial chamber dimension is normal. Aortic Valve ? The aortic valve is normal. Pulmonic Valve ? The pulmonic valve is normal. Mitral Valve ? The mitral valve has normal leaflets. Tricuspid Valve ? The tricuspid valve leaflets are normal. Pericardium/Pleural ? The pericardium appears normal. Aorta ? The aortic root size at the sinus of Valsalva is normal. Labs on day of discharge: Preliminary micro results at discharge 03/05/22 23:16 Blood Culture - Preliminary Blood 03/05/22 23:16 Blood Culture - Preliminary Blood Imaging Radiologist's impression: ITS Impressions Chest CTA 03/05/22 13:05 IMPRESSION: 1. Segmental pulmonary emboli in the lower lobes and right upper lobe. 2. Worsening airspace opacities in the lower lobes which may be atelectasis/pneumonia versus pulmonary infarct. 3. Small pleural effusions. Venous Doppler Study 03/06/22 08:41 IMPRESSION: 1. No deep venous thrombosis. Discharge Plan Discharge Attending physician on discharge: Yoseph Martin Discharging Clinician: Yoseph Martin Anticipated Discharge Date/Time: 03/08/22 11:5
== END 2022-03-08 13:45 | disposition home or self-care (01) | DRG 193 ==
LOC: ANHED 12:08 → ANH3MEDSUR 15:30
PROVIDERS: Nurse Practitioner; Admitting Provider Family Medicine; Emergency Provider Emergency Medicine; PCP Internal Medicine; Visit Provider Internal Medicine
DX: J18.9 Pneumonia, unspecified organism (principal); I26.09 Other pulmonary embolism with acute cor pulmonale; U07.1 COVID-19; Z28.21 Immunization not carried out because of patient refusal; Z79.01 Long term (current) use of anticoagulants
CPT/HCPCS: 36415; 71275; 80053; 83615; 83735; 85025; 85610; 85730; 87040; 93005; 93970; 94640; 96361; 96365; 96367; 96375; 96376; 99285; A9270; C8929; G0378; J0456; J0696; J2270; J2550; J7030; Q9957; Q9967